=== PATIENT | female | born 1955 | race Caucasian/White ===

== ENCOUNTER → 2020-09-27 | Outpatient (CLI) | payer OTHER ==
--- NOTE | 2020-09-27 13:24 | RAD ---
XR BILATERAL HIP (WITH OR WITHOUT PELVIS) 2 VIEWS_RIGHT DATE: 09/27/2020 10:04 AM INDICATION: PAIN COMPARISON: None. FINDINGS: Bones: There is no evidence of acute fracture or dislocation. Joints: Moderate degenerative changes of the hips. Mild degenerative changes of the symphysis pubis. Incompletely characterized lumbar spondylosis Miscellaneous: None. IMPRESSION: 1. No acute osseous abnormality. 2. Moderate degenerative changes of the hips. Electronically signed by: Cruz Finley MD (09/27/2020 1:21 PM) [id number]
--- NOTE | 2020-09-27 16:08 | RAD ---
3 views the right shoulder without comparison for right shoulder pain from a fall. FINDINGS: There is no fracture or acute osseous abnormality. There are postsurgical changes of a prio r rotator cuff tear, and there is narrowing of subacromial space which may reflect recurrent rotator cuff injury. Os acromiale is noted. IMPRESSION: 1. No acute osseous abnormality. 2. Postsurgical and degenerative changes as described. 3. There are subacromial space which may indicate recurrent rotator cuff injury. Electronically signed by: Ajay Hillman MD (09/27/2020 4:06 PM) [id number]
== END ==
LOC: RAD 09:48
PROVIDERS: ATTEND Anesthesiology Pain Medicine
DX: M19.011 Primary osteoarthritis, right shoulder (principal); M16.11 Unilateral primary osteoarthritis, right hip
CPT/HCPCS: 73030; 73502